=== PATIENT | female | born 2000 | race Two or more races ===

== ENCOUNTER 2024-02-24 07:12 | Emergency (ER) | payer SELFPAY ==
[2024-02-24 07:18] VITALS: TEMP 98.7
[2024-02-24 09:45] LABS: BASO % 0.3 % (0.0-1.0); EOS # 0.1 10^3/uL (0.0-0.5); HEMOGLOBIN 14.1 g/dl (12.0-15.5); LYMPH # 1.9 10^3/uL (1.5-5.0); LYMPH % 16.4 % (24.0-44.0); MEAN CORPUSCULAR HEMOGLOBIN 30.3 pg (27.0-33.0); MEAN CORPUSCULAR HGB CONC 34.4 g/dl (32.0-36.5); MEAN CORPUSCULAR VOLUME 88.2 fl (80.0-96.0); MONO # 0.6 10^3/uL (0.0-0.8); MONO % 5.5 % (2.0-8.0); NEUTROPHILS % 76.4 % (36.0-66.0); PLATELET COUNT, AUTOMATED 278 10^3/uL (150-450); RED BLOOD COUNT 4.65 10^6/uL (4.00-5.40); WHITE BLOOD COUNT 11.7 10^3/uL (4.0-10.0)
[2024-02-24 10:13] LABS: LIPASE 26 U/L (12-53)
[2024-02-24 10:15] LABS: ALBUMIN 3.4 G/DL (3.2-5.2); ALKALINE PHOSPHATASE 78 U/L (35-104); ALT/SGPT 26 U/L (7.0-40); AST/SGOT 14 U/L (<34); BILIRUBIN,DIRECT 0.1 MG/DL (<0.4); BILIRUBIN,TOTAL 0.4 MG/DL (0.3-1.2); BLOOD UREA NITROGEN 6 MG/DL (9-23); CALCIUM LEVEL 9.5 MG/DL (8.5-10.1); CARBON DIOXIDE LEVEL 22 MMOL/L (20-31); CHLORIDE LEVEL 106 MMOL/L (98-107); CREATININE FOR GFR 0.52 MG/DL (0.55-1.30); GLOMERULAR FILTRATION RATE > 60.0 (>60); GLUCOSE, FASTING 82 MG/DL (60-100); SODIUM LEVEL 138 MMOL/L (136-145); TOTAL PROTEIN 6.7 G/DL (5.7-8.2)
[2024-02-24 10:16] LABS: APPEARANCE, URINE HAZY (CLEAR); BACTERIA, URINE AUTO NEGATIVE (NEGATIVE); BILIRUBIN, URINE AUTO NEGATIVE (NEGATIVE); BLOOD, URINE BLOOD NEGATIVE (NEGATIVE); COLOR, URINE YELLOW (YELLOW); GLUCOSE, URINE (UA) AUTO NEGATIVE (NEGATIVE); KETONE, URINE AUTO TRACE mg/dL (NEGATIVE); LEUKOCYTE ESTERASE, URINE AUTO NEGATIVE (NEGATIVE); MUCUS, URINE SMALL (NEGATIVE); NITRITE, URINE AUTO NEGATIVE (NEGATIVE); PROTEIN, URINE AUTO NEGATIVE (NEGATIVE); RBC, URINE AUTO 3 /HPF (0-3); SPECIFIC GRAVITY URINE AUTO 1.019 (1.002-1.035); SQUAMOUS EPITHELIAL CELL UR AU 16 /HPF (0-6); UROBILINOGEN, URINE AUTO 0.2 mg/dL (0.0-2.0); WBC, URINE AUTO 1 /HPF (0-3)
[2024-02-24 11:00] VITALS: BP 119/79; O2SAT 99
== END 2024-02-24 11:02 | disposition home or self-care (01) ==
LOC: M ED 07:12
DX: O26.891 Other specified pregnancy related conditions, first trimester (principal); R10.2 Pelvic and perineal pain; K58.9 Irritable bowel syndrome, unspecified; Z3A.11 11 weeks gestation of pregnancy

== ENCOUNTER → 2024-08-24 | Outpatient (CLI) | payer OTHER ==
[~2024-08-24] MED LIST: PRENTAB9 PO
== END ==
LOC: M RAD 12:28
PROVIDERS: ATTEND Obstetrics & Gynecology
DX: O26.843 Uterine size-date discrepancy, third trimester (principal); Z3A.36 36 weeks gestation of pregnancy

== ENCOUNTER → 2024-08-24 | Outpatient (CLI) | payer OTHER | LOC: M WHC 12:03 | PROVIDERS: ATTEND Obstetrics & Gynecology | DX: O26.843 Uterine size-date discrepancy, third trimester (principal); Z53.9 Procedure and treatment not carried out, unspecified reason ==

== ENCOUNTER 2024-09-12 07:28 | Inpatient (IN) | payer OTHER ==
[2024-09-12] VITALS (22 sets, daily range): BP systolic 106–156; BP diastolic 62–105
[~2024-09-12] VITALS: Ht 160 cm; Wt 102.8 kg
[2024-09-12] MEDS ORDERED: FAMO20TA PO (08:07)
[2024-09-12 09:21] LABS: PLATELET COUNT, AUTOMATED 224 10^3/uL (150-450)
[2024-09-12] MEDS: miSOPROStol 50 MCG 1/2 TABLET SL SCH (09:23)
[2024-09-12 10:11] LABS: HIV 1&2 SCREEN NEGATIVE (NEGATIVE)
[2024-09-12 10:18] LABS: HEPATITIS C VIRUS ABY INDEX < 0.02 INDEX (<0.8)
[2024-09-12] MEDS ORDERED: FENTANYL 2 MCG/ML ROPIVACAINE 0.2% IN 0.9% NACL 100 ML IVBAG As Ordered ONE (17:19)
[2024-09-12] MEDS ORDERED: LR 500 ML IV PRN ×2 (17:20)
[2024-09-12] MEDS ORDERED: EPIDURAL/PCA KEYS XX PRN ×2 (17:20)
[2024-09-12] MEDS ORDERED: ONDANSETRON 4MG 2ML VIAL IV PRN (17:20)
[2024-09-12] MEDS ORDERED: NALOXONE INJ 0.4 MG/1 ML VIAL IV PRN ×2 (17:20)
[2024-09-12] MEDS ORDERED: diphenhydrAMINE 50 MG/ML VIAL IV PRN ×2 (17:20)
[2024-09-12] MEDS: FENTANYL/ROPIVACAINE/NACL BAG 100 ML EPIDURAL SCH (17:57)
[2024-09-12] MEDS ORDERED: OXYTOCIN DRIP 30 UNITS in IV 1 EA IV SCH (18:30)
[2024-09-12] MEDS: LR 1,000 ML IV ONE (18:46)
[2024-09-12] MEDS: ONDANSETRON 4MG 2ML VIAL IV PRN (18:47)
[2024-09-12] MEDS: LIDOCAINE 1% MDV 20 ML VIAL INFIL PRN (21:40)
[2024-09-12] MEDS: OXYTOCIN DRIP 30 UNITS in IV 1 EA IV PRN (21:40)
[2024-09-12 21:47] LABS: CORD GAS ABE V -3.3; CORD GAS HCO3 V 22.1 MMOL/L; CORD GAS O2 SAT V 70.7 %; CORD GAS PCO2 V 41.1 mmHg; CORD GAS PH V 7.349 UNITS; CORD GAS PO2 V 29.9 mmHg; CORD GAS SBC V 21.0 MMOL/L; CORD GAS TCO2 V 23.4 MMOL/L
[2024-09-12 21:51] LABS: CORD GAS ABE A -6.1; CORD GAS HCO3 A 20.3 MMOL/L; CORD GAS O2 SAT A 65.3 %; CORD GAS PCO2 A 43.0 mmHg; CORD GAS PH A 7.291 UNITS; CORD GAS PO2 A 29.0 mmHg; CORD GAS SBC A 18.7 MMOL/L; CORD GAS TCO2 A 21.6 MMOL/L
[2024-09-12] MEDS ORDERED: RHOGAM 300MCG (1500IU) INJ IM SCH (22:10)
[2024-09-12] MEDS ORDERED: ACETAMINOPHEN 325 MG TAB PO PRN (22:10)
[2024-09-12] MEDS ORDERED: METHYLERGONOVINE MALEATE 0.2 MG TAB PO PRN (22:10)
[2024-09-12] MEDS ORDERED: IBUPROFEN 600 MG TAB PO PRN (22:10)
[2024-09-13 00:20] VITALS: BP 117/62; O2SAT 100
[2024-09-13] MEDS: ACETAMINOPHEN 500 MG TAB PO PRN (02:02)
[2024-09-13] MEDS: IBUPROFEN 800 MG TAB PO PRN (04:57)
[2024-09-13 05:50] VITALS: BP 101/59; O2SAT 96
[2024-09-13] MEDS: PRENATAL VITAMINS CHEWABLE TABLET PO SCH (09:41)
[2024-09-13 18:25] VITALS: BP 124/66; O2SAT 93
[2024-09-13] MEDS: DIBUCAINE 1% OINTMENT 30 GM TOP PRN (19:07)
[2024-09-13] MEDS: DOCUSATE SODIUM 100 MG CAPSULE PO PRN (21:15)
[2024-09-14 06:00] VITALS: BP 112/89; O2SAT 98
[2024-09-14] MEDS: BOOSTRIX VACCINE (TETANUS/DIPHTH/ACEL. PERTUSSIS) 0.5 ML SYR IM.IMMUN ONE (08:26)
[2024-09-14] MEDS: MEASLES,MUMPS,RUBELLA VACCINE INJ (MMR-II) SC.IMMUN ONE (09:37)
[2024-09-14] MEDS ORDERED: IBUP80TA PO (10:46)
[2024-09-14] MEDS ORDERED: ACET-683 PO (10:46)
== END 2024-09-14 13:40 | disposition home or self-care (01) | DRG 807 ==
LOC: M LDI 07:28 → M OBS 09-13 00:32
PROVIDERS: ADMIT Specialist; ATTEND Specialist
PROC: 10E0XZZ Delivery of Products of Conception, External Approach (ICD-10-PCS; principal; 2024-09-12)
PROC: 0KQM0ZZ Repair Perineum Muscle, Open Approach (ICD-10-PCS; 2024-09-12)
PROC: 3E0P7GC Introduction of Other Therapeutic Substance into Female Reproductive, Via Natural or Artificial Opening (ICD-10-PCS; 2024-09-12)
DX: O24.429 Gestational diabetes mellitus in childbirth, unspecified control (principal); Z37.0 Single live birth; Z3A.39 39 weeks gestation of pregnancy; O70.1 Second degree perineal laceration during delivery